=== PATIENT | female | born 1970 | race Two or more races ===

== ENCOUNTER 2021-10-25 13:02 | Outpatient (CLI) | payer BC | END 2021-10-25 23:29 | disposition home or self-care (01) | LOC: MRI 13:02 | PROVIDERS: ATTEND Legal Medicine | DX: M75.81 Other shoulder lesions, right shoulder (principal); M85.411 Solitary bone cyst, right shoulder; M25.78 Osteophyte, vertebrae | CPT/HCPCS: 72141-TC; 73221-TC ==